=== PATIENT | male | born 1935 | race Caucasian/White ===

== ENCOUNTER 2024-08-07 23:52 | Observation (INO) | payer MEDICARE ==
[~2024-08-07] VITALS: Ht 177.8 cm; Wt 54.1 kg
[2024-08-08] VITALS (12 sets, daily range): BP systolic 124–198; BP diastolic 64–96; PULSE 39–71; RESP 16–24; TEMP 96.9–97.9; O2SAT 95–98
[2024-08-08 03:47] LABS: BASOPHILS # (AUTO) 0.02 K/uL (0.00-0.20); BASOPHILS % (AUTO) 0.2 % (0.0-5.0); EOSINOPHILS # (AUTO) 0.05 K/uL (0.00-0.70); EOSINOPHILS % (AUTO) 0.5 % (0.0-8.0); HEMATOCRIT 41.3 % (42-54); IMMATURE GRANULOCYTE ABSOLUTE 0.04 K/uL (0-1); LYMPHOCYTES # (AUTO) 1.5 K/uL (1.0-4.8); LYMPHOCYTES % (AUTO) 15.5 % (21.0-51.0); MEAN CORPUSCULAR HEMOGLOBIN 31.4 pg (27.0-33.0); MEAN CORPUSCULAR HGB CONC 32.9 g/dL (32.0-36.0); MEAN CORPUSCULAR VOLUME 95.4 fL (79-99); MONOCYTES # (AUTO) 0.8 K/uL (0.1-1.0); MONOCYTES % (AUTO) 8.4 % (3.0-13.0); PLATELET COUNT (AUTO) 155 K/uL (130-400); RED BLOOD CELL COUNT(AUTO) 4.33 MIL/uL (4.50-6.20); RED CELL DISTRIBUTION WIDTH 13.2 % (11.0-15.5); WHITE BLOOD COUNT (AUTO) 9.3 K/uL (4.8-10.8)
[2024-08-08 04:21] LABS: ALBUMIN 2.7 g/dL (3.5-5.0); BILIRUBIN,TOTAL 0.5 mg/dL (0.2-1.0); CREATININE 0.5 mg/dL (0.5-1.3); MAGNESIUM 1.8 mg/dL (1.80-2.40); POTASSIUM 3.9 mmol/L (3.5-5.1); THYROID STIMULATING HORMONE 1.9 uIU/mL (0.36-3.74); TOTAL PROTEIN, SERUM 6.7 g/dL (6.0-8.3)
[2024-08-08] MEDS: IpraTROPium/alBUTERol SULFATE 3 ML SOLUTION IH SCH (06:18)
[2024-08-08] MEDS: FAMOTIDINE 20MG VIAL IV SCH (08:00)
[2024-08-08] MEDS: LISINOPRIL 20 MG TABLET PO SCH (11:50)
[2024-08-08] MEDS ORDERED: LIDOP TP (14:18)
[2024-08-08] MEDS ORDERED: LIDO700A30 TP (14:35)
[2024-08-08] MEDS: LIDOCAINE 5% TOPICAL PATCH TP ONE (14:45)
== END 2024-08-08 15:30 | disposition home or self-care (01) ==
LOC: 2DH 08-08 00:30 → INTOOBSV 08-08 00:30 → 2DH 08-08 10:28
PROVIDERS: ADMIT Internal Medicine Sleep Medicine; ATTEND Internal Medicine Sleep Medicine
DX: R00.1 Bradycardia, unspecified (principal); J44.9 Chronic obstructive pulmonary disease, unspecified; I10 Essential (primary) hypertension; R29.6 Repeated falls; E78.5 Hyperlipidemia, unspecified; F17.210 Nicotine dependence, cigarettes, uncomplicated; H91.93 Unspecified hearing loss, bilateral; R09.02 Hypoxemia; I44.4 Left anterior fascicular block; G61.0 Guillain-Barre syndrome; Z79.899 Other long term (current) drug therapy; W19.XXXA Unspecified fall, initial encounter; Y93.89 Activity, other specified; Y92.098 Other place in other non-institutional residence as the place of occurrence of the external cause; Y99.8 Other external cause status
CPT/HCPCS: 96374; 84443; 83735; 84484; 80053; 85025; 36415; 71045; 93306; 94664; G0378 ×5; J3490; 94640